=== PATIENT | male | born 1970 | race Caucasian/White ===

== ENCOUNTER 2016-09-19 17:13 | Emergency (ER) | payer OTHER ==
[~2016-09-19] VITALS: Ht 180.3 cm; Wt 97.5 kg
[~2016-09-19 17:13] MED LIST: PERCOCET 325 MG1 TA2 PO
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
[2016-09-19] MEDS ORDERED: SIMVASTATIN20 M2 PO (19:58)
[2016-09-19] MEDS ORDERED: DOXYCYCLINE HY100 M2 PO (19:58)
[2016-09-19] MEDS ORDERED: DIPHENHYDRAMINE25 M4 PO (19:59)
[2016-09-19] MEDS ORDERED: ASPIRIN EC81 M1 PO (20:00)
[2016-09-19] MEDS ORDERED: MULTI-DAY VITA1 EACH PO (20:00)
[2016-09-19] MEDS ORDERED: VITAMIN B-121000 MC3 PO (20:00)
[2016-09-19] MEDS ORDERED: VITAMIN D2000 UNIT PO (20:01)
[2016-09-19] MEDS ORDERED: MOBIC15 M1 PO (20:07)
[2016-09-19] MEDS ORDERED: CYCLOBENZAPRINE10 M1 PO (20:07)
[2016-09-19 20:09] VITALS: BP 152/80
== END 2016-09-19 20:10 ==
LOC: ERH 17:13
DX: S16.1XXA Strain of muscle, fascia and tendon at neck level, initial encounter (principal); V43.52XA Car driver injured in collision with other type car in traffic accident, initial encounter
CPT/HCPCS: 72050